=== PATIENT | male | born 1970 | race African-American/Black ===

== ENCOUNTER 2025-06-08 08:41 | Outpatient (CLI) | payer OTHER | END 2025-06-08 08:42 | disposition home or self-care (01) | LOC: CSHSLEEP 08:41 | PROVIDERS: ATTEND Internal Medicine | DX: G47.33 Obstructive sleep apnea (adult) (pediatric) (principal); R53.83 Other fatigue; R06.83 Snoring | CPT/HCPCS: 95800 ==

== ENCOUNTER 2025-08-10 08:59 | Outpatient (CLI) | payer OTHER | END 2025-08-10 09:00 | disposition home or self-care (01) | LOC: CSHSLEEP 08:59 | PROVIDERS: ATTEND Internal Medicine | DX: G47.33 Obstructive sleep apnea (adult) (pediatric) (principal); R53.83 Other fatigue; R06.83 Snoring | CPT/HCPCS: 95811 ==